=== PATIENT | female | born 1990 | race Caucasian/White ===

== ENCOUNTER 2019-05-18 11:35 | Emergency (ER) | payer OTHER ==
[~2019-05-18] VITALS: Ht 162.6 cm; Wt 65.8 kg
[2019-05-18 12:09] LABS: URINE BILIRUBIN NEGATIVE (Negative); URINE BLOOD NEGATIVE (Negative); URINE CLARITY CLEAR; URINE COLOR YELLOW; URINE GLUCOSE-RANDOM* NEGATIVE (Negative); URINE KETONES TRACE (Negative); URINE LEUKOCYTES NEGATIVE (Negative); URINE NITRITE NEGATIVE (Negative); URINE PROTEIN (DIPSTICK) TRACE (Negative); URINE SPECIFIC GRAVITY 1.015 (1.005-1.035)
[2019-05-18 12:10] LABS: ABSOLUTE NEUTROPHILS 4.6 thou/uL (1.4-8.2); BASOPHILS 1.4 % (0.0-2.0); EOSINOPHILS 2.8 % (0.0-3.0); HEMATOCRIT 39.2 % (37.0-47.0); HEMOGLOBIN 13.4 gm/dL (12.0-15.0); LYMPHOCYTES 34.5 % (24.0-44.0); MCH 31.4 pg (26.0-34.0); MCHC 34.2 g/dL (28.0-37.0); MCV 91.8 fL (80.0-100.0); MONOCYTES 8.2 % (1.0-8.0); PLATELET COUNT 316 thou/uL (150-400); POLYS 53.1 % (36.0-66.0); RBC 4.26 mil/uL (4.20-5.00); RDW 11.7 % (10.5-14.5); WBC 8.6 thou/uL (4.0-11.0)
[2019-05-18 12:16] LABS: CALCIUM 9.5 mg/dL (8.5-10.1); CREATININE 0.7 mg/dL (0.6-1.0); POTASSIUM 3.9 mmol/L (3.5-5.1)
[2019-05-18 12:22] LABS: ALBUMIN 3.7 g/dL (3.4-5.0); TOTAL BILIRUBIN 1.1 mg/dL (<0.1-1.0); TOTAL PROTEIN 7.3 g/dL (6.4-8.2)
[2019-05-18] MEDS ORDERED: RIZATRIPTAN10 MG PO (13:06)
[2019-05-18] MEDS ORDERED: ZOFRAN ODT4 MG DISSOLVE (16:15)
[2019-05-18] MEDS ORDERED: NAPROSYN500 MG PO (16:15)
[2019-05-18 16:30] VITALS: BP 120/76
== END 2019-05-18 16:49 | disposition home or self-care (01) ==
LOC: ER 11:35
PROVIDERS: Emergency Medicine
DX: R10.2 Pelvic and perineal pain (principal); R11.0 Nausea; R10.32 Left lower quadrant pain; G43.909 Migraine, unspecified, not intractable, without status migrainosus